=== PATIENT | female | born 1970 | race Caucasian/White ===

== ENCOUNTER → 2021-01-25 | Outpatient (CLI) | payer MEDICARE, OTHER ==
--- NOTE | 2021-01-25 13:10 | NM ---
EXAMINATION TYPE: NM bone 3 phase DATE OF EXAM: 01/25/2021 COMPARISON: NONE HISTORY: Other diseases of jaws Triple phase bone scintigraphy was performed following the injection of 22.17 mCi Tc 99m MDP. Blood f low, blood pool images and 3 hours post injection images acquired. FINDINGS: Blood flow: Injection is on the right. No suspicious asymmetric radiotracer accumulation is evident. Blood pool: Blood pool appears normal and symmetrical. Static images: Multiple sequences were obtained over the head neck and proximal thorax. Radiotracer d istribution appears normal. Specifically, no asymmetric uptake or focal hot nodules are identified wi thin the jaw. No uptake associated with surgery are evident. This can be normal with surgery one and 2 years out. Note is made of a focus of radiotracer accumulation within proximal right upper extremity region on b lood flow and blood pool images. Small focus of inflammatory change could be considered. Correspondin g abnormality on static images however is not evident. IMPRESSION: 1. No suspicious radiotracer accumulation within the jaw. 2. Small focus of inflammation or infection in the proximal medial upper extremity could be considere d. No osseous corresponding abnormality identified.
== END | disposition home or self-care (01) ==
LOC: RADNMMAIN 07:40
PROVIDERS: ATTEND Otolaryngology
DX: M27.8 Other specified diseases of jaws (principal)
CPT/HCPCS: 78315; A9503